=== PATIENT | female | born 1965 | race Two or more races ===

== ENCOUNTER 2017-01-23 15:15 | Emergency (ER) | payer OTHER ==
[~2017-01-23] VITALS: Ht 152.4 cm; Wt 59.0 kg
[2017-01-23] MEDS ORDERED: Ipratropium 0.02% Inh Soln 2.5ml UD HHN ONE (15:30)
[2017-01-23] MEDS ORDERED: Sodium Chloride 500ML 500 ML IV ONE (15:30)
[2017-01-23] MEDS ORDERED: Albuterol ud Inhalation HHN ONE (15:30)
[2017-01-23 16:00] VITALS: BP 118/87
--- NOTE | 2017-01-23 16:19 | Diagnostic Imaging Report ---
Indication: Dyspnea Comparison: None A single view chest radiograph was obtained. Findings: There is basilar atelectasis. Heart size is normal. Bones are osteopenic. Impression: Mild basilar atelectasis
[2017-01-23] MEDS ORDERED: Tubing IV Cassette IV ONE (16:22)
[2017-01-23 16:53] LABS: BASOPHILS % (AUTO) 1.1 % (0.0-2.0); EOSINOPHILS % (AUTO) 1.5 % (0.0-3.0); LYMPHOCYTES % (AUTO) 18.6 % (20.0-45.0); MEAN CORPUSCULAR HEMOGLOBIN 27.6 PG (27.0-31.0); MEAN CORPUSCULAR HGB CONC 31.3 G/DL (32.0-36.0); MEAN CORPUSCULAR VOLUME 88 FL (80-99); MEAN PLATELET VOLUME 5.8 FL (6.5-10.1); MONOCYTES % (AUTO) 5.4 % (1.0-10.0); NEUTROPHILS % (AUTO) 73.4 % (45.0-75.0); PLATELET COUNT 245 K/UL (150-450); RED BLOOD COUNT 3.75 M/UL (4.20-5.40); RED CELL DISTRIBUTION WIDTH 14.2 % (11.6-14.8); WHITE BLOOD COUNT 6.6 K/UL (4.8-10.8)
[2017-01-23 16:58] LABS: ANION GAP 8 mmol/L (5-15); CALCIUM 8.9 MG/DL (8.5-10.1); CARBON DIOXIDE 30 MMOL/L (21-32); CHLORIDE 104 MMOL/L (98-107); CREATININE 0.8 MG/DL (0.55-1.30); GLOMERULAR FILTRATION RATE > 60 mL/min (>60); POTASSIUM 3.5 MMOL/L (3.5-5.1); SODIUM 142 MMOL/L (136-145)
[2017-01-23 17:17] LABS: ALANINE AMINOTRANSFERASE 21 U/L (12-78); ASPARTATE AMINO TRANSFERASE 23 U/L (15-37); TOTAL PROTEIN 8.5 G/DL (6.4-8.2)
[2017-01-23 17:18] LABS: ALBUMIN/GLOBULIN RATIO 0.7 (1.0-2.7)
[2017-01-23 17:36] LABS: CKMB 2.9 NG/ML (0.0-3.6)
--- NOTE | 2017-01-23 17:42 | Emergency Room Report ---
History of Present Illness General Chief Complaint: Chest Pain Source: Patient Present Illness HPI 51-year-old female presents to ED for evaluation. Patient states she's been having shortness of breath x1 day. Patient initially noted some chest tightness , worse with deep breaths. Notes history of asthma. Denies fevers chills. Denies cough. Patient also notes history of PE but is currently not taking any blood thinners. Denies any leg swelling or leg pain. Denies sick contacts or travel. No other aggravating relieving factors. Denies any other associated symptoms Allergies: Coded Allergies: No Known Allergies (Unverified , 01/23/17) Patient History Past Medical History: asthma, other - PE Past Surgical History: none Pertinent Family History: none Social History: Denies: smoking, alcohol use, drug use Now: No Immunizations: UTD Reviewed Nursing Documentation: PMH: Agreed, PSxH: Agreed Nursing Documentation-PMH Hx Asthma: Yes Review of Systems All Other Systems: negative except mentioned in HPI Physical Exam Vital Signs Date Time Temp Pulse Resp B/P (MAP) Pulse Ox O2 Delivery O2 Flow Rate FiO2 01/23/17 15:11 97.9 78 16 102/60 98 Room Air Sp02 EP Interpretation: reviewed, normal General Appearance: no apparent distress, alert, GCS 15, non-toxic Head: normocephalic, atraumatic Eyes: bilateral eye normal inspection, bilateral eye PERRL ENT: hearing grossly normal, normal pharynx, no angioedema, normal voice Neck: full range of motion, supple/symm/no masses Respiratory: chest non-tender, lungs clear, normal breath sounds, speaking full sentences Cardiovascular #1: regular rate, rhythm, no edema Cardiovascular #2: 2+ carotid (R), 2+ carotid (L), 2+ radial (R), 2+ radial (L) , 2+ dorsalis pedis (R), 2+ dorsalis pedis (L) Gastrointestinal: normal bowel sounds, non tender, soft, non-distended, no guarding, no rebound Rectal: deferred Genitourinary: normal inspection, no CVA tenderness Musculoskeletal: back normal, gait/station normal, normal range of motion, non- tender Neurologic: alert, oriented x3, responsive, motor strength/tone normal, sensory intact, speech normal Psychiatric: judgement/insight normal, memory normal, mood/affect normal, no suicidal/homicidal ideation Reflexes: 3+ bicep (R), 3+ bicep (L), 3+ tricep (R), 3+ tricep (L), 3+ knee (R) , 3+ knee (L) Skin: normal color, no rash, warm/dry, well hydrated Lymphatic: no adenopathy Medical Decision Making Diagnostic Impression: Primary Impression: Bronchitis ER Course Hospital Course 51-year-old F presents ED complaining of chest pressure, SOB. h/o PE Differential diagnoses include: Rib fracture, AR/unstable angina, contusion, muscle strain Clinical course Patient placed on stretcher. After initial history and physical I ordered labs , EKG, chest x-ray. [facility] labs reviewed- all electrolytes normal, troponins negative, no leukocytosis, hemoglobin/hematocrit stable, ddimer elevated EKG - NSR, no acute ischemic changes interpreted by me Chest [id number] CTA Chest no PE On reassessment symptoms are improved. Likely bronchitis. Given negative CTA chest patient can be safely discharged to home I. I feel this is a highly complex case requiring extensive working including EKG/Rhythm strip, Xray/CT/US, Blood/urine lab work, repeat exams while in ED, and administration of strong opiates/narcotics for pain control, admission to hospital or close patient follow up. Diagnosis - bronchitis Stable and discharged to home with Rx Prednisone, Albuterol. Instructed to followup with PMD. Return to ED if symptoms recur or worsen Labs Test 01/23/17 16:10 White Blood Count 6.6 K/UL (4.8-10.8) Red Blood Count 3.75 M/UL (4.20-5.40) Hemoglobin 10.3 G/DL (12.0-16.0) Hematocrit 33.0 % (37.0-47.0) Mean Corpuscular Volume 88 FL (80-99) Mean Corpuscular Hemoglobin 27.6 PG (27.0-31.0) Mean Corpuscular Hemoglobin Concent 31.3 G/DL (32.0-36.0) Red Cell Distribution Width 14.2 % (11.6-14.8) Platelet Count 245 K/UL (150-450) Mean Platelet Volume 5.8 FL (6.5-10.1) Neutrophils (%) (Auto) 73.4 % (45.0-75.0) Lymphocytes (%) (Auto) 18.6 % (20.0-45.0) Monocytes (%) (Auto) 5.4 % (1.0-10.0) Eosinophils (%) (Auto) 1.5 % (0.0-3.0) Basophils (%) (Auto) 1.1 % (0.0-2.0) D-Dimer 0.80 mg/L FEU (0.00-0.49) Sodium Level 142 MMOL/L (136-145) Potassium Level 3.5 MMOL/L (3.5-5.1) Chloride Level 104 MMOL/L (98-107) Carbon Dioxide Level 30 MMOL/L (21-32) Anion Gap 8 mmol/L (5-15) Blood Urea Nitrogen 12 mg/dL (7-18) Creatinine 0.8 MG/DL (0.55-1.30) Estimat Glomerular Filtration Rate > 60 mL/min (>60) Glucose Level 120 MG/DL (74-106) Calcium Level 8.9 MG/DL (8.5-10.1) Total Bilirubin 0.2 MG/DL (0.2-1.0) Aspartate Amino Transf (AST/SGOT) 23 U/L (15-37) Alanine Aminotransferase (ALT/SGPT) 21 U/L (12-78) Alkaline Phosphatase 70 U/L (46-116) Total Creatine Kinase 327 U/L (26-140) Creatine Kinase MB 2.9 NG/ML (0.0-3.6) Creatine Kinase MB Relative Index 0.8 Troponin I 0.009 ng/mL (0.000-0.056) Pro-B-Type Natriuretic Peptide 67 pg/mL (0-125) Total Protein 8.5 G/DL (6.4-8.2) Albumin 3.4 G/DL (3.4-5.0) Globulin 5.1 g/dL Albumin/Globulin Ratio 0.7 (1.0-2.7) EKG Diagnostic Results Rate: normal Rhythm: NSR ST Segments: no acute changes Rhythm Strip Diag. Results EP Interpretation: yes Rhythm: NSR, no PVC's, no ectopy Chest X-Ray Diagnostic Results Chest X-Ray Diagnostic Results : Chest X-Ray Ordered: Yes # of Views/Limited/Complete: 1 View Indication: Shortness of Breath EP Interpretation: Yes Interpretation: no consolidation, no pneumothorax, no acute cardiopulmonary disease, other - basilar atelectasis Impression: Other - atelectasis CT/MRI/US Diagnostic Results CT/MRI/US Diagnostic Results : Imaging Test Ordered: CTA Chest Impression no PE Last Vital Signs Date Time Temp Pulse Resp B/P (MAP) Pulse Ox O2 Delivery O2 Flow Rate FiO2 01/23/17 15:57 86 33 Room Air 01/23/17 15:54 97 01/23/17 15:11 97.9 102/60 Status: improved Disposition: HOME, SELF-CARE Condition: Stable Scripts Prednisone* (PREDNISONE*) 20 Mg Tablet 40 MG ORAL DAILY, #10 TAB Prov: NICK MONTERO M.D. 01/23/17 Albuterol Sulfate* (ALBUTEROL SULFATE MDI*) 8.5 Gm Hfa.aer.ad 2 PUFF INH Q6H, #1 EA 0 Refills Prov: NICK MONTERO M.D. 01/23/17 Referrals: [facility],REFERRING (PCP) NICK MONTERO M.D. Jan 23, 2017 17:42
[2017-01-23 18:00] VITALS: BP 107/77
[2017-01-23] MEDS ORDERED: NKM (18:19)
[2017-01-23] MEDS ORDERED: PREDNISONE20 MG ORAL (18:48)
[2017-01-23] MEDS ORDERED: ALBUTEROL SULF8.5 GM INH (18:48)
[2017-01-23 18:57] VITALS: BP 107/77
--- NOTE | 2017-01-24 10:08 | Diagnostic Imaging Report ---
ndication: SOB, chest pain, possible pulmonary embolus Technique: IV administration nonionic contrast. Spiral acquisitions obtained from the lung bases to the lung apices. Multiplanar and 3-D reconstructions were generated. Total dose length product 611 mGycm. CTDIvol(s) 12 and 22 mGy. Dose reduction achieved using automated exposure control Comparison: None Findings: There is adequate pulmonary arterial opacification. No intraluminal filling defects or other findings to suggest acute pulmonary embolus demonstrated. The heart is mildly enlarged, but no focal left ventricular dilatation demonstrated. The pulmonary arteries are nondilated. No thoracic aortic aneurysm or dissection. There is extensive diffuse bilateral parenchymal disease. This is mostly interstitial, but there is also considerable groundglass and other airspace opacity. No effusions. In the right lower lobe at the level of the pulmonary hilum, there is a soft tissue mass which is noncalcified, measures 15 mm long axis dimension. There is also a subpleural 6 mm pulmonary nodule in the left upper lobe, image 22 of series 7. There is bilateral hilar lymphadenopathy, with hilar nodes on the right measuring up to 2.2 cm long axis dimension. There is mediastinal adenopathy as well. The thyroid is unremarkable. The esophagus is unremarkable. There are numerous prominent although not frankly enlarged bilateral axillary nodes. The included upper abdominal anatomy is unremarkable. Impression: Negative for evidence of acute pulmonary embolus Extensive diffuse bilateral pulmonary parenchymal disease, as described, mixed but mostly interstitial. Appearance is nonspecific, could represent a chronic fibrosing interstitial disease, acute infectious or noninfectious inflammatory process, less likely pulmonary edema. Favor significant chronic component 1.5 cm right lower lobe mass. Concerning for neoplasm. Consider PET scan or biopsy 6 mm noncalcified left upper lobe pulmonary nodule as well. Could be neoplastic or postinflammatory. Further workup should depend on results of workup of the right lung mass Bilateral and mediastinal lymphadenopathy. Possible axillary lymphadenopathy. Could be metastatic related to the above. However, bilaterality and possible axillary involvement raises possibility of lymphoproliferative disorder, among other possibilities. Correlate with clinical history and findings This agrees with the preliminary interpretation provided overnight by [employer] teleradiology service. The CT scanner at [facility] is accredited by the [employer] and the scans are performed using protocols designed to limit radiation exposure to as low as reasonably achievable to attain images of sufficient resolution adequate for diagnostic evaluation.
--- NOTE | 2017-01-31 17:21 | Cardiology Report ---
APPROVED REPORT EKG Measurement Heart [id number] Normal sinus rhythm Possible Right ventricular hypertrophy Abnormal ECG
== END 2017-01-23 18:54 | disposition home or self-care (01) ==
LOC: EDBD 15:15 → EMR 16:27
DX: J40 Bronchitis, not specified as acute or chronic (principal); J45.909 Unspecified asthma, uncomplicated; R91.1 Solitary pulmonary nodule
CPT/HCPCS: 36415; 71010; 71275; 80053; 82550; 82553; 83880; 84484; 85025; 85379; 93005; 94640; 94664; 96360; 96361; 99284; J7040; Q9967